=== PATIENT | male | born 1975 | race Hispanic/Latino ===

== ENCOUNTER → 2025-01-29 | Outpatient (CLI) | payer OTHER ==
--- NOTE | 2025-01-30 05:58 | HMCIMG ---
EXAM: CR Lumbar Spine, 3 views CLINICAL HISTORY: Back pain. COMPARISON: None provided. FINDINGS: Straightening of the expected lumbar lordosis with subtle levocurvature reflects paraspinal muscle spasm. Mild spondylosis and degenerative disc space narrowing at L4-L5 and L5-S1. The remaining disc spaces are maintained. Normal vertebral body heights. No acute fracture. Soft tissues are within normal limits. IMPRESSION: No acute bony abnormality is evident. Straightening of the expected lumbar lordosis with subtle levocurvature reflects paraspinal muscle spasm. Mild spondylosis and degenerative disc space narrowing at L4-L5 and L5-S1. /[place]
--- NOTE | 2025-01-30 05:58 | HMCIMG ---
EXAM: CR Right Knee, 2 views. CLINICAL HISTORY: Pain. COMPARISON: None provided. FINDINGS: No acute fracture or aggressive appearing osseous lesion. Joint spaces are within normal limits. There is no joint effusion appreciated. The soft tissues are unremarkable. IMPRESSION: No acute bony abnormality is evident. /[place]
== END | disposition home or self-care (01) ==
LOC: RAH 15:56
PROVIDERS: ATTEND Internal Medicine
DX: S83.521A Sprain of posterior cruciate ligament of right knee, initial encounter (principal); M47.817 Spondylosis without myelopathy or radiculopathy, lumbosacral region; M48.07 Spinal stenosis, lumbosacral region; M40.46 Postural lordosis, lumbar region; M51.379 Other intervertebral disc degeneration, lumbosacral region without mention of lumbar back pain or lower extremity pain; M54.50 Low back pain, unspecified; X58.XXXA Exposure to other specified factors, initial encounter; Y93.89 Activity, other specified; Y92.89 Other specified places as the place of occurrence of the external cause; Y99.8 Other external cause status
CPT/HCPCS: 72100; 73560